=== PATIENT | female | born 1985 | race Caucasian/White ===

== ENCOUNTER 2021-02-03 12:25 | Emergency (ER) | payer MEDICAID ==
[~2021-02-03] VITALS: Ht 152.4 cm; Wt 61.3 kg
[2021-02-03 13:00] VITALS: BP 119/82
== END 2021-02-03 13:11 | disposition home or self-care (01) ==
LOC: ER 12:26
DX: Z02.89 Encounter for other administrative examinations (principal); F15.90 Other stimulant use, unspecified, uncomplicated; F17.200 Nicotine dependence, unspecified, uncomplicated; Z88.5 Allergy status to narcotic agent
CPT/HCPCS: 99281